=== PATIENT | female | born 1945 | race Caucasian/White ===

== ENCOUNTER 2019-03-19 07:09 | Inpatient (IN) | payer BC, MEDICARE ==
[~2019-03-19] VITALS: Ht 175.3 cm; Wt 59.0 kg
[~2019-03-19 07:09] MED LIST: LIPITOR PO; METFORMIN PO
[2019-03-19] MEDS ORDERED: IPRATROPIUM BROMIDE (0.02%) 0.5MG/2.5ML NEB HHN STA (07:32)
[2019-03-19] MEDS ORDERED: METHYLPREDNISOLONE SOD SUCC 125 MG/2 ML VIAL IV STA (07:32)
[2019-03-19] MEDS ORDERED: MAGNESIUM 2 G PREMIX 50 ML IV ONE (07:45)
[2019-03-19] MEDS: ALBUTEROL (0.083%) 2.5MG/3ML NEB HHN SCH ×3 (08:05→08:45)
[2019-03-19] MEDS ORDERED: LEVOFLOXACIN 500MG PREMIX 100 ML IV ONE (08:30)
[2019-03-19 08:42] LABS: BASOPHILS % 0.1 % (0.0-2.0); EOSINOPHILS % 0.1 % (0.0-5.0); HEMATOCRIT. 45.1 % (36.0-48.0); HEMOGLOBIN. 14.6 g/dL (12.0-16.0); LYMPHOCYTES % 11.5 % (20.0-50.0); MEAN CORPUSCULAR VOLUME 95.9 fL (81.0-99.0); MEAN PLATELET VOLUME 9.5 fl (7.4-10.4); MONOCYTES % 10.8 % (2.0-8.0); NEUTROPHILS % 77.5 % (40.0-76.0); PLATELET 395 x1000/uL (130-400); RED CELL DISTRIBUTION WIDTH 15.3 % (11.6-14.6)
[2019-03-19 08:44] LABS: INR 1.3; PROTHROMBIN TIME 13.3 sec (9.6-11.0)
[2019-03-19 08:48] LABS: CHLORIDE 100 mEq/L (98-107)
[2019-03-19] MEDS ORDERED: FUROSEMIDE 40MG/4ML VIAL IVP ONE (09:00)
[2019-03-19] MEDS ORDERED: ASPIRIN 325MG EC TABLET PO ONE (09:00)
[2019-03-19] MEDS: CLOPIDOGREL 75MG TABLET PO SCH (13:15)
[2019-03-19] MEDS ORDERED: IPRATROPIUM/ALBUTEROL 0.5-3(2.5)MG/3ML NEB NEB PRN (13:15)
[2019-03-19] MEDS ORDERED: GUAIFENESIN 200MG/10ML SUGAR FREE UDC PO PRN (13:15)
[2019-03-19] MEDS ORDERED: MAGNESIUM/ALUMINUM HYDROXIDE/SIMETHICONE 30ML UDC PO PRN (13:15)
[2019-03-19] MEDS ORDERED: CLONIDINE 0.1MG TABLET PO PRN (13:15)
[2019-03-19] MEDS ORDERED: ONDANSETRON HCL 4MG/2ML INJ IV PRN (13:15)
[2019-03-19] MEDS ORDERED: ACETAMINOPHEN 325MG TABLET PO PRN (13:15)
[2019-03-19] MEDS ORDERED: DOCUSATE SODIUM 100MG CAPSULE PO PRN (13:15)
[2019-03-19] MEDS ORDERED: LEVOFLOXACIN 500MG PREMIX 100 ML IV SCH (13:15)
[2019-03-19] MEDS: IPRATROPIUM/ALBUTEROL 0.5-3(2.5)MG/3ML NEB NEB SCH ×2 (15:01→20:38)
[2019-03-19] MEDS: METHYLPREDNISOLONE SOD SUCC 125 MG/2 ML VIAL IV SCH ×2 (15:22→21:05)
[2019-03-19 16:09] LABS: CREATINE KINASE MB FRACTION 5.5 ng/mL (0.5-3.6)
[2019-03-19] MEDS ORDERED: NICOTINE 14MG PATCH TD NR (17:45)
[2019-03-19 20:03] VITALS: BP 133/55
[2019-03-19 20:07] VITALS: BP 133/55
[2019-03-19] MEDS ORDERED: RAMI10CA68 PO (20:27)
[2019-03-19] MEDS ORDERED: CLOP75TA4 PO (20:27)
[2019-03-19] MEDS ORDERED: ASPI-1497 PO (20:27)
[2019-03-19] MEDS: GUAIFENESIN 600MG ER TABLET PO SCH (21:05)
[2019-03-19] MEDS: NITROGLYCERIN OINT 1GM/INCH UDPKT TD SCH (21:05)
[2019-03-19] MEDS ORDERED: DEXTROSE 50% WATER 50ML SYRINGE IV PRN (21:15)
[2019-03-19 23:31] LABS: CREATINE KINASE MB FRACTION 4.7 ng/mL (0.5-3.6)
[2019-03-20 00:05] VITALS: BP 141/63
[2019-03-20] MEDS: METHYLPREDNISOLONE SOD SUCC 125 MG/2 ML VIAL IV SCH ×3 (01:20→13:58)
[2019-03-20] MEDS: NITROGLYCERIN OINT 1GM/INCH UDPKT TD SCH ×4 (01:20→20:57)
[2019-03-20] MEDS: IPRATROPIUM/ALBUTEROL 0.5-3(2.5)MG/3ML NEB NEB SCH ×4 (04:12→21:46)
[2019-03-20 04:13] VITALS: BP 130/62
[2019-03-20] MEDS: BLOOD SUGAR DIAGNOSTIC STRIP TEST SCH ×4 (05:39→20:57)
[2019-03-20 06:40] LABS: CHLORIDE 97 mEq/L (98-107)
[2019-03-20 06:44] LABS: HEMATOCRIT. 38.8 % (36.0-48.0); HEMOGLOBIN. 12.8 g/dL (12.0-16.0); MEAN CORPUSCULAR HEMOGLOBIN 30.6 pg (28.0-32.0); MEAN CORPUSCULAR VOLUME 93.2 fL (81.0-99.0); MEAN PLATELET VOLUME 9.7 fl (7.4-10.4); PLATELET 336 x1000/uL (130-400); RED BLOOD CELL COUNT 4.17 mill/uL (4.2-5.4); RED CELL DISTRIBUTION WIDTH 14.8 % (11.6-14.6)
[2019-03-20 06:52] LABS: LDL CHOLESTEROL 42 mg/dL (5-100)
[2019-03-20 06:54] LABS: HDL CHOLESTEROL 48 mg/dL (40-59)
[2019-03-20 08:00] VITALS: BP 141/76
[2019-03-20] MEDS: ASPIRIN 81MG EC TABLET PO SCH (09:00)
[2019-03-20] MEDS: NICOTINE 21MG PATCH TD SCH (09:15)
[2019-03-20] MEDS: CLOPIDOGREL 75MG TABLET PO SCH (09:50)
[2019-03-20] MEDS: NICOTINE 14MG PATCH TD SCH (09:51)
[2019-03-20] MEDS: AMLODIPINE 10MG TABLET PO SCH (09:51)
[2019-03-20] MEDS: GUAIFENESIN 600MG ER TABLET PO SCH ×2 (09:51→20:57)
[2019-03-20] MEDS: FUROSEMIDE 40MG/4ML VIAL IV SCH (09:52)
[2019-03-20] MEDS: INSULIN LISPRO 100 UNITS/ML SUBCUT SCH ×4 (09:53→21:00)
[2019-03-20] MEDS: LEVOFLOXACIN 500MG PREMIX 100 ML IV SCH (11:35)
[2019-03-20 12:00] VITALS: BP 133/61
[2019-03-20 16:00] VITALS: BP 127/60
[2019-03-20 17:35] LABS: NUCLEATED RED BLOOD CELLS 3 /100 WBC; PLATELET ESTIMATE NORMAL
[2019-03-20 20:06] VITALS: BP 115/61
[2019-03-20] MEDS: METHYLPREDNISOLONE SOD SUCC 40 MG/ML VIAL IV SCH (20:58)
[2019-03-21 00:07] VITALS: BP 138/84
[2019-03-21] MEDS: NITROGLYCERIN OINT 1GM/INCH UDPKT TD SCH ×2 (02:02→08:00)
[2019-03-21] MEDS: IPRATROPIUM/ALBUTEROL 0.5-3(2.5)MG/3ML NEB NEB SCH ×2 (02:29→08:12)
[2019-03-21 04:00] VITALS: BP 110/50
[2019-03-21] MEDS: METHYLPREDNISOLONE SOD SUCC 40 MG/ML VIAL IV SCH (05:49)
[2019-03-21] MEDS: BLOOD SUGAR DIAGNOSTIC STRIP TEST SCH ×2 (05:57→13:15)
[2019-03-21 08:00] VITALS: BP 136/66
[2019-03-21] MEDS: NICOTINE 14MG PATCH TD SCH (08:38)
[2019-03-21] MEDS: AMLODIPINE 10MG TABLET PO SCH (08:38)
[2019-03-21] MEDS: GUAIFENESIN 600MG ER TABLET PO SCH (08:38)
[2019-03-21] MEDS: NICOTINE 21MG PATCH TD SCH (08:38)
[2019-03-21] MEDS: FUROSEMIDE 40MG/4ML VIAL IV SCH (08:38)
[2019-03-21] MEDS: CLOPIDOGREL 75MG TABLET PO SCH (08:39)
[2019-03-21] MEDS: ASPIRIN 81MG EC TABLET PO SCH (08:39)
[2019-03-21] MEDS: LEVOFLOXACIN 500MG PREMIX 100 ML IV SCH (08:40)
[2019-03-21] MEDS: INSULIN LISPRO 100 UNITS/ML SUBCUT SCH ×2 (09:06→13:16)
[2019-03-21 15:20] VITALS: BP 126/62
== END 2019-03-21 16:15 | disposition home health service (06) | DRG 291 ==
LOC: ER 07:09 → 7WST 10:23 → EDBEDREQ 10:25 → ENRESERV 17:38 → 7WST 03-21 09:18
PROVIDERS: ADMIT Hospitalist; ATTEND Hospitalist
DX: I11.0 Hypertensive heart disease with heart failure (principal); J96.20 Acute and chronic respiratory failure, unspecified whether with hypoxia or hypercapnia; E44.1 Mild protein-calorie malnutrition; J44.1 Chronic obstructive pulmonary disease with (acute) exacerbation; J84.9 Interstitial pulmonary disease, unspecified; Z68.1 Body mass index [BMI] 19.9 or less, adult; I50.43 Acute on chronic combined systolic (congestive) and diastolic (congestive) heart failure; E11.9 Type 2 diabetes mellitus without complications; I25.10 Atherosclerotic heart disease of native coronary artery without angina pectoris; R74.0 Nonspecific elevation of levels of transaminase and lactic acid dehydrogenase [LDH]; Z60.2 Problems related to living alone; E78.5 Hyperlipidemia, unspecified; F17.210 Nicotine dependence, cigarettes, uncomplicated; I25.2 Old myocardial infarction; Z86.73 Personal history of transient ischemic attack (TIA), and cerebral infarction without residual deficits; Z82.49 Family history of ischemic heart disease and other diseases of the circulatory system; Z95.5 Presence of coronary angioplasty implant and graft; Z88.0 Allergy status to penicillin; Z79.899 Other long term (current) drug therapy; Z79.84 Long term (current) use of oral hypoglycemic drugs; Z93.3 Colostomy status; Z90.49 Acquired absence of other specified parts of digestive tract; Z71.6 Tobacco abuse counseling; Z87.01 Personal history of pneumonia (recurrent)
CPT/HCPCS: 36415; 71045; 80053; 80061; 82550; 82553; 82962; 83036; 83880; 84484; 85025; 87076; 93005; 93306; 93970; 94640; 97162; 97535; 99291; J1815; J1940; J1956; J2920; J2930; J3475